=== PATIENT | female | born 1995 | race Caucasian/White ===

== ENCOUNTER 2022-02-01 02:25 | Emergency (ER) | payer BC ==
[~2022-02-01] VITALS: Ht 160 cm; Wt 56.7 kg
[2022-02-01 02:26] VITALS: BP 118/79
[2022-02-01] MEDS ORDERED: AZIT250T9 PO (02:49)
[2022-02-01] MEDS ORDERED: ACE3T PO (02:49)
[2022-02-01] MEDS ORDERED: PRED20TA2 PO (02:49)
== END 2022-02-01 03:09 | disposition home or self-care (01) ==
LOC: EEVIPCON 02:25 → ER 02:25
DX: R50.9 Fever, unspecified (principal); Z20.822 Contact with and (suspected) exposure to COVID-19
CPT/HCPCS: 36415; 87070; 87426; 87804; 87880; 99283; C9803; U0003